=== PATIENT | female | born 1995 | race Two or more races ===

== ENCOUNTER 2019-11-18 22:29 | Emergency (ER) | payer MEDICAID ==
[~2019-11-18] VITALS: Ht 170.2 cm; Wt 68.0 kg
--- NOTE | 2019-11-18 23:11 | Emergency Room Report ---
History of Present Illness General Chief Complaint: Behavioral Complaint Source: Patient, EMS, PMD (Jocy Fagan M.D.) Present Illness HPI Patient is a 24-year-old female unclear past medical history who was brought in by EMS and [employer] for possible suicidal ideation. Patient states that she is and that she is waiting for her to come meet her here. She says that they are both contaminated. She refuses to respond to any other questioning. Per EMS [employer] was called for possible suicidal ideation by the patient's family. They state that she had gone missing for 1 month and then returned and has been acting erratically. Unable to obtain further history at this time. (Jocy Fagan M.D.) Allergies: Coded Allergies: No Known Allergies (Unverified , 03/27/18) COVID-19 Screening Contact w/high risk pt: No Recent Travel to affected area: No Experienced COVID-19 symptoms?: No COVID-19 Testing performed ACQUISITIONS LOGISTICS ANALYST: No (Jocy Fagan M.D.) Patient History Limited by: medical condition Last Menstrual Period: unk Reviewed Nursing Documentation: PMH: Agreed; PSxH: Agreed (Jocy Fagan M.D.) Nursing Documentation-PMH Past Medical History: No Stated History (Jocy Fagan M.D.) Review of Systems All Other Systems: limited - AMS (Jocy Fagan M.D.) Physical Exam Vital Signs Date Time Temp Pulse Resp B/P (MAP) Pulse Ox O2 Delivery O2 Flow Rate FiO2 11/18/19 22:30 98.8 90 18 130/90 (103) 99 Sp02 EP Interpretation: reviewed, normal General Appearance: no apparent distress, alert, non-toxic Head: normocephalic, atraumatic Eyes: bilateral eye normal inspection, bilateral eye PERRL ENT: hearing grossly normal, normal pharynx, no angioedema, normal voice Neck: full range of motion, supple/symm/no masses Respiratory: chest non-tender, lungs clear, normal breath sounds, speaking full sentences Cardiovascular #1: regular rate, rhythm, no edema Gastrointestinal: normal bowel sounds, non tender, soft, non-distended, no guarding, no rebound Rectal: deferred Genitourinary: normal inspection, no CVA tenderness Musculoskeletal: normal range of motion, moves extm spontaneously Neurologic: public health policy analyst III-XII nml as tested Psychiatric: other - delusional Skin: no rash Lymphatic: no adenopathy (Jocy Fagan M.D.) Medical Decision Making Diagnostic Impression: Primary Impression: Behavioral disorder Additional Impressions: Hypokalemia Tetrahydrocannabinol (THC) dependence ER Course Patient was acting violently in the emergency room. She was interfering with her own patient care and threatening the ER staff. Patient was given 2 mg of intramuscular Ativan, 50 mg of intramuscular Benadryl and 5 mg of intramuscular Haldol for sedation. Patient now resting comfortably in bed. Patient's potassium was low at 3.2. I have ordered for 10 mEq of IV potassium chloride. A repeat potassium level has been ordered. Patient was placed on 5150 by [employer]. At 6 AM patient signed out to . Patient is medically cleared. (Jocy Fagan M.D.) ER Course Please refer to the initial note for the history exam and presentation patient' s repeat potassium is improved and appropriate I was asked to place a note regarding the covid-19 testing on the patient Patient does not have any complaints of upper respiratory infection There was no reports of fever or any other suggestion to initiate testing Patient remains medically cleared and is pending further psychiatric disposition Labs Test 11/19/19 01:55 11/19/19 04:36 11/19/19 06:55 White Blood Count 6.7 K/UL (4.8-10.8) Red Blood Count 4.52 M/UL (4.20-5.40) Hemoglobin 14.5 G/DL (12.0-16.0) Hematocrit 39.8 % (37.0-47.0) Mean Corpuscular Volume 88 FL (80-99) Mean Corpuscular Hemoglobin 32.0 PG (27.0-31.0) Mean Corpuscular Hemoglobin Concent 36.3 G/DL (32.0-36.0) Red Cell Distribution Width 11.5 % (11.6-14.8) Platelet Count 226 K/UL (150-450) Mean Platelet Volume 6.3 FL (6.5-10.1) Neutrophils (%) (Auto) 57.7 % (45.0-75.0) Lymphocytes (%) (Auto) 29.9 % (20.0-45.0) Monocytes (%) (Auto) 10.1 % (1.0-10.0) Eosinophils (%) (Auto) 0.9 % (0.0-3.0) Basophils (%) (Auto) 1.4 % (0.0-2.0) Sodium Level 142 MMOL/L (136-145) Potassium Level 3.2 MMOL/L (3.5-5.1) 4.8 MMOL/L (3.5-5.1) Chloride Level 104 MMOL/L (98-107) Carbon Dioxide Level 29 MMOL/L (21-32) Anion Gap 9 mmol/L (5-15) Blood Urea Nitrogen 8 mg/dL (7-18) Creatinine 1.0 MG/DL (0.55-1.30) Estimat Glomerular Filtration Rate > 60 mL/min (>60) Glucose Level 104 MG/DL (74-106) Calcium Level 8.8 MG/DL (8.5-10.1) Magnesium Level 2.1 MG/DL (1.8-2.4) Total Bilirubin 0.6 MG/DL (0.2-1.0) Aspartate Amino Transf (AST/SGOT) 30 U/L (15-37) Alanine Aminotransferase (ALT/SGPT) 31 U/L (12-78) Alkaline Phosphatase 52 U/L (46-116) Total Protein 6.9 G/DL (6.4-8.2) Albumin 3.6 G/DL (3.4-5.0) Globulin 3.3 g/dL Albumin/Globulin Ratio 1.1 (1.0-2.7) Salicylates Level 0.7 ug/mL (2.8-20) Acetaminophen Level < 2 MCG/ML (10-30) Serum Alcohol < 3 mg/dL Urine Color Yellow Urine Appearance Clear Urine pH 5 (4.5-8.0) Urine Specific [place] 1.030 (1.005-1.035) Urine Protein 2+ (NEGATIVE) Urine Glucose (UA) Negative (NEGATIVE) Urine Ketones 1+ (NEGATIVE) Urine Blood 1+ (NEGATIVE) Urine Nitrite Negative (NEGATIVE) Urine Bilirubin Negative (NEGATIVE) Urine Urobilinogen 1 MG/DL (0.0-1.0) Urine Leukocyte Esterase 1+ (NEGATIVE) Urine RBC 0-2 /HPF (0 - 2) Urine WBC 0-2 /HPF (0 - 2) Urine Squamous Epithelial Cells Few /LPF (NONE/OCC) Urine Bacteria Few /HPF (NONE) Urine Mucus Many /LPF (NONE/OCC) Urine HCG, Qualitative Negative (NEGATIVE) Urine Opiates Screen Negative (NEGATIVE) Urine Barbiturates Screen Negative (NEGATIVE) Phencyclidine (PCP) Screen Negative (NEGATIVE) Urine Amphetamines Screen Negative (NEGATIVE) Urine Benzodiazepines Screen Negative (NEGATIVE) Urine Cocaine Screen Negative (NEGATIVE) Urine Marijuana (THC) Screen Positive (NEGATIVE) (Jasen Grigsby DO) Last Vital Signs Date Time Temp Pulse Resp B/P (MAP) Pulse Ox O2 Delivery O2 Flow Rate FiO2 11/18/19 22:30 98.8 90 18 130/90 (103) 99 (Jocy Fagan M.D.) Status: improved (Jasen Grigsby DO) Signed Out To: Dr. Grigsby at 6am (Jocy Fagan M.D.) Jocy Fagan M.D. Nov 18, 2019 23:11 Jasen Grigsby DO Nov 19, 2019 09:43
[2019-11-19] MEDS ORDERED: DiphenhydrAMINE 50mg/ml Inj IM ONE (01:00)
[2019-11-19] MEDS ORDERED: Haloperidol 5mg/ml Inj IM ONE (01:00)
[2019-11-19] MEDS ORDERED: LORazepam Inj 2mg/ml 1ml IM ONE (01:00)
[2019-11-19 01:34] VITALS: BP 130/90
[2019-11-19 02:27] LABS: BASOPHILS % (AUTO) 1.4 % (0.0-2.0); EOSINOPHILS % (AUTO) 0.9 % (0.0-3.0); HEMATOCRIT 39.8 % (37.0-47.0); HEMOGLOBIN 14.5 G/DL (12.0-16.0); LYMPHOCYTES % (AUTO) 29.9 % (20.0-45.0); MEAN CORPUSCULAR VOLUME 88 FL (80-99); MONOCYTES % (AUTO) 10.1 % (1.0-10.0); NEUTROPHILS % (AUTO) 57.7 % (45.0-75.0); PLATELET COUNT 226 K/UL (150-450); RED BLOOD COUNT 4.52 M/UL (4.20-5.40); RED CELL DISTRIBUTION WIDTH 11.5 % (11.6-14.8); WHITE BLOOD COUNT 6.7 K/UL (4.8-10.8)
[2019-11-19 02:32] LABS: ANION GAP 9 mmol/L (5-15); BLOOD UREA NITROGEN 8 mg/dL (7-18); CALCIUM 8.8 MG/DL (8.5-10.1); CARBON DIOXIDE 29 MMOL/L (21-32); CHLORIDE 104 MMOL/L (98-107); POTASSIUM 3.2 MMOL/L (3.5-5.1); SODIUM 142 MMOL/L (136-145)
[2019-11-19 02:39] LABS: ALANINE AMINOTRANSFERASE 31 U/L (12-78); ALBUMIN 3.6 G/DL (3.4-5.0); ALBUMIN/GLOBULIN RATIO 1.1 (1.0-2.7); ALKALINE PHOSPHATASE 52 U/L (46-116); ASPARTATE AMINO TRANSFERASE 30 U/L (15-37); BILIRUBIN,TOTAL 0.6 MG/DL (0.2-1.0)
[2019-11-19 05:14] LABS: APPEARANCE,URINE CLEAR; BILIRUBIN, URINE NEGATIVE (NEGATIVE); GLUCOSE, URINE (UA) NEGATIVE (NEGATIVE); KETONES,URINE 1+ (NEGATIVE); LEUKOCYTE ESTERASE ,URINE 1+ (NEGATIVE); NITRITE,URINE NEGATIVE (NEGATIVE); PH,URINE 5 (4.5-8.0); PROTEIN,URINE 2+ (NEGATIVE); UROBILINOGEN,URINE 1 MG/DL (0.0-1.0)
[2019-11-19 05:42] LABS: COLOR,URINE YELLOW
[2019-11-19 05:50] VITALS: BP 120/62
[2019-11-19 08:15] VITALS: BP 118/64
[2019-11-19 12:38] VITALS: BP 115/65
[2019-11-19 15:25] VITALS: BP 115/75
== END 2019-11-19 15:25 ==
LOC: EDBD 22:29 → EDUNIT# 22:29 → EMR 23:12
DX: F91.9 Conduct disorder, unspecified (principal); E87.6 Hypokalemia
CPT/HCPCS: 36415; 80053; 80307; 81003; 81025; 83735; 84132; 85025; 96365; 96372; G0480; G0481; J1200; J1630; J3480; Z7502; 99285